=== PATIENT | male | born 1945 | race Caucasian/White ===

== ENCOUNTER 2017-01-13 14:25 | Observation (INO) | payer MEDICARE, OTHER ==
[~2017-01-13] VITALS: Ht 182.9 cm; Wt 146.1 kg
[2017-01-13 15:17] LABS: ASPARTATE AMINO TRANSFERASE 15 U/L (15-37); BLOOD UREA NITROGEN 23 mg/dL (7-18)
[2017-01-13] MEDS ORDERED: ENALAPRILAT 1.25 MG/ML, 2ML IVPush PRN (16:00)
[2017-01-13] MEDS ORDERED: ONDANSETRON ODT 4 MG PO PRN (16:00)
[2017-01-13] MEDS ORDERED: morphine SULFATE 10 MG/ML, 1ML IVPush PRN (16:00)
[2017-01-13] MEDS ORDERED: ONDANSETRON 2MG/ML, 2ML IVPush PRN (16:00)
[2017-01-13] MEDS ORDERED: FENTANYL PF 100 MCG/2ML ONE (16:04)
[2017-01-13] MEDS ORDERED: CEFAZOLIN PMX 1GM/50ML 50 ML ONE (16:05)
[2017-01-13] MEDS ORDERED: MIDAZOLAM 1 MG/ML, 5ML ONE (16:05)
[2017-01-13] MEDS ORDERED: CEFAZOLIN 1,000 MG ONE (16:05)
[2017-01-13] MEDS ORDERED: LIDOCAINE 2%, 20ML ONE (16:05)
[2017-01-13 16:16] LABS: DIFF TOTAL CELLS COUNTED 100 CELL DIFF
[2017-01-13] MEDS ORDERED: HYDROcodone/APAP 5/325 TABLET PO PRN (17:30)
[2017-01-13] MEDS ORDERED: ACETAMINOPHEN 325 MG TABLET PO PRN (17:30)
[2017-01-13 17:38] LABS: VERIFY COUNTS? YES
[2017-01-13 17:40] LABS: SMUDGE CELLS 1+
[2017-01-13 17:49] VITALS: BP 145/70
[2017-01-13] MEDS: SODIUM CHLORIDE 0.9% 1,000 ML IV SCH ×2 (18:43→23:57)
[2017-01-13 19:30] VITALS: BP 146/73
[2017-01-13] MEDS: SODIUM CHLORIDE FLUSH 10ML SYR IVF SCH (21:00)
[2017-01-14] MEDS: CEFAZOLIN PMX 1GM/50ML 50 ML IVPB SCH ×2 (00:43→07:53)
[2017-01-14 01:11] VITALS: BP 125/68
[2017-01-14 06:07] LABS: ASPARTATE AMINO TRANSFERASE 16 U/L (15-37); BLOOD UREA NITROGEN 19 mg/dL (7-18)
[2017-01-14 07:02] LABS: DIFF TOTAL CELLS COUNTED 100 CELL DIFF
[2017-01-14 07:25] LABS: VERIFY COUNTS? YES
[2017-01-14 07:48] VITALS: BP 149/76
[2017-01-14] MEDS: SODIUM CHLORIDE FLUSH 10ML SYR IVF SCH (07:53)
[2017-01-14] MEDS: SODIUM CHLORIDE 0.9% 1,000 ML IV SCH (07:53)
[2017-01-14] MEDS ORDERED: ASPI-515 PO (14:05)
[2017-01-14] MEDS ORDERED: ERGO2000 PO (14:06)
== END 2017-01-14 15:08 | disposition home or self-care (01) ==
LOC: ED 15:25 → 5SO 15:27 → INTOOBSV 15:27 → ED 15:46
PROVIDERS: ADMIT Hospitalist; ATTEND Hospitalist
DX: I44.1 Atrioventricular block, second degree (principal); I50.31 Acute diastolic (congestive) heart failure; D64.9 Anemia, unspecified; C91.10 Chronic lymphocytic leukemia of B-cell type not having achieved remission; E66.9 Obesity, unspecified; N18.9 Chronic kidney disease, unspecified; D72.829 Elevated white blood cell count, unspecified; R79.89 Other specified abnormal findings of blood chemistry; R74.8 Abnormal levels of other serum enzymes; Z87.891 Personal history of nicotine dependence; Z96.652 Presence of left artificial knee joint
CPT/HCPCS: 33208; 36415; 71010; 80053; 82306; 83735; 83880; 84100; 84439; 84443; 84481; 85025; 85610; 93005; 93306; 96365; 96375; 99156; 99157; 99285; C1779; C1785; C1892; G0378; J0690; J2250; J3010; J3490; J7030

== ENCOUNTER → 2018-06-22 | Outpatient (CLI) | payer MEDICARE ==
[~2018-06-22] MED LIST: ASPI-515 PO; ERGO2000 PO
== END | disposition home or self-care (01) ==
LOC: CFH 07:24
PROVIDERS: ATTEND Internal Medicine Hematology & Oncology
DX: R16.1 Splenomegaly, not elsewhere classified (principal); N28.1 Cyst of kidney, acquired; C91.10 Chronic lymphocytic leukemia of B-cell type not having achieved remission; C92.00 Acute myeloblastic leukemia, not having achieved remission; I82.591 Chronic embolism and thrombosis of other specified deep vein of right lower extremity
CPT/HCPCS: 76700